=== PATIENT | male | born 1990 | race African-American/Black ===

== ENCOUNTER 2018-01-05 06:22 | Day surgery (SDC) | payer OTHER ==
--- NOTE | 2017-12-30 16:45 | HP ---
PREOPERATIVE HISTORY AND PHYSICAL: DATE OF ADMISSION: 01/05/18 [facility] PROVIDER: Dr. Monica Choi.* (DICTATED BY RACHELE HITCHCOCK) CHIEF COMPLAINT: Left fourth finger injury. HISTORY OF PRESENT ILLNESS: Addison is a 27-year-old male, who is a grad student at [employer]. He was playing basketball on 12/22/17 and was hit in the hand. He had pain, swelling, and deformity of the fourth finger and was seen at [facility]. X-rays were taken. He was placed in a splint and referred to Orthopedics for further followup. There was malrotation of the finger on exam and continues to be. The patient is interested in surgical intervention. PAST MEDICAL HISTORY: Ulcerative colitis. PAST SURGICAL HISTORY: None. CURRENT MEDICATIONS: Lialda 1.2 g daily. ALLERGIES: No known drug allergies. FAMILY HISTORY: Positive for diabetes and cancer. SOCIAL HISTORY: He lives alone. He denies tobacco use. He drinks alcoholic beverages occasionally. He exercises regularly. REVIEW OF SYSTEMS: A 14-point review of systems was discussed with the patient. All systems were negative except discussed in the HPI. PHYSICAL EXAMINATION GENERAL: He is a well-developed, well-nourished male, in no acute distress at rest. He is alert and oriented x3 with appropriate mood and affect. VITAL SIGNS: The patient is 5 feet 10 inches, 191 pounds. Blood pressure 106/ 60, pulse of 52, respirations 17, temperature 97.8. HEENT: Normocephalic, atraumatic. His hearing and vision are grossly intact. NECK: His trachea is midline. RESPIRATORY: Lungs are clear to auscultation bilaterally. No wheezes, rales, or rhonchi. CARDIOVASCULAR: Regular rate and rhythm. No murmurs, rubs, or gallops. Normal S1, S2. ABDOMEN: Soft, nondistended, nontender. Normal bowel sounds. EXTREMITIES: Exam of the left upper extremity, skin is intact without abrasions or open wounds. There is mild edema and ecchymosis of the fourth finger into the palm. He is tender to palpation along the proximal phalanx of the fourth finger with about 60 degrees of malrotation. He is nontender throughout the remainder of the fingers. He has full flexion and extension of the MCP, PIP, and DIP joints of all digits. Normal range of motion at the elbow , wrist, and shoulder. Sensation to light touch is intact. He has a normal vascular exam. DIAGNOSTIC STUDIES: X-rays of the fourth finger showed a displaced comminuted fracture at the distal aspect of the proximal phalanx of the fourth finger on the left hand with rotation. IMPRESSION: Left fourth finger fracture. PLAN: The patient is to undergo left fourth finger fracture closed reduction and percutaneous pinning by Dr. Choi on 01/05/18. The risks, benefits, and postoperative course were discussed with the patient at length and he would like to proceed. He did advise that he is not able to take ibuprofen postoperatively due to his ulcerative colitis. All of his questions were answered to his full satisfaction. He is understanding to call with problems or concerns. RACHELE HITCHCOCK [id number]/[facility] #: [id number] MTDMariusz
[~2018-01-05 06:22] MED LIST: Buffered Lidocaine 0.9% SYRIN* 5 ML/SYR SYRINGE INTRADERM ONE
[2018-01-05] MEDS ORDERED: ceFAZolin 2 GM PREMIX (*) 2 GM/50 ML BAG IVPB ONE (06:31)
[2018-01-05] MEDS ORDERED: Propofol* 10 MG/ML 20 ML BTL IV PUSH ONE (07:15)
[2018-01-05] MEDS ORDERED: Midazolam* 1 MG/ML 2 ML VIAL (2 MG) ONE (07:15)
[2018-01-05] MEDS ORDERED: fentaNYL* 50 MCG/ML 2 ML VIAL (100 MCG VIAL) ONE (07:15)
[2018-01-05] MEDS ORDERED: Lidocaine 1% INJ* 10 MG/ML 30 ML SDV ONE (07:16)
[2018-01-05] MEDS ORDERED: Naloxone* 0.4 MG/ML 1 ML VIAL IV PRN (08:13)
[2018-01-05 08:23] VITALS: BP 128/66
--- NOTE | 2018-01-06 03:15 | OP ---
DATE OF OPERATION: 01/05/18 - [facility] DATE OF : 89 SURGEON: Monica Choi MD BIOLOGY SPECIMEN TECHNICIAN: RACHELE Robles ANESTHESIA: Local MAC. PRE-OP DIAGNOSIS: Left ring finger proximal phalanx fracture, displaced. POST-OP DIAGNOSIS: Left ring finger proximal phalanx fracture, displaced plus collateral ligament tear of the PIP joint, radial side. OPERATIVE PROCEDURE: Closed reduction and pinning of the proximal phalanx fracture, left ring finger. ESTIMATED BLOOD LOSS: Zero. TOURNIQUET TIME: Tourniquet was not used during the procedure. INDICATION FOR PROCEDURE: Addison is a 27-year-old male who injured his left ring finger playing basketball. He has obvious deformity of the finger with a spiral comminuted fracture of the proximal phalanx. He presents for close reduction and pinning. DESCRIPTION OF PROCEDURE: The patient was brought to the operating room, was given a sedation anesthetic and a digital block with 10 cc of 1% plain lidocaine. The skin of his left hand and forearm was prepped and draped in the usual sterile fashion. The fracture was close reduced and there was still a slight angular deformity of the ring finger towards the small finger and it was determined that there was radial collateral ligament injury at the PIP joint as in flexion and extension of the finger, the alignment was very good. The fracture fragments were secured with four 0.035 inch K-wires, which were cut outside the skin. The pin sites were dressed with Xeroform, 4x4, Webril and the ring finger was joseph taped to the middle finger and AlumaFoam splint secured with Coban. The patient tolerated the procedure well, was brought to the recovery room in good condition. [id number]/[facility] #: [id number] [facility]
--- NOTE | 2018-01-06 10:23 | RAD ---
INDICATION: S62.615A COMPARISONS: December 22, 2017 TECHNIQUE: Fluoroscopy was provided for a surgical procedure. Total fluoroscopy time is: 1 minute, 21 seconds FINDINGS: Spot images demonstrate percutaneous fixation of the proximal phalanx of the fourth digit IMPRESSION: FLUOROSCOPY WAS PROVIDED FOR A SURGICAL PROCEDURE CPT II Codes: G9500
== END 2018-01-05 08:38 | disposition home or self-care (01) ==
LOC: OREAST 06:22
PROVIDERS: ATTEND Orthopaedic Surgery
DX: S62.615A Displaced fracture of proximal phalanx of left ring finger, initial encounter for closed fracture (principal); W21.05XA Struck by basketball, initial encounter; Y93.67 Activity, basketball; Y92.310 Basketball court as the place of occurrence of the external cause; K51.90 Ulcerative colitis, unspecified, without complications
CPT/HCPCS: 76000; C1776; J0690; J2250; J2704; J3010

== ENCOUNTER 2018-04-13 14:17 | Emergency (ER) | payer OTHER ==
[2018-04-13 15:26] VITALS: BP 145/67
--- NOTE | 2018-04-13 15:28 | UC ---
Throat Pain/Nasal Robert HPI - HPI Summary HPI Summary: 27 yo male presents with a sore throat for the last 2 days. He has not taken anything OTC for his symptoms. He is going out of town in a few days and wants to make sure he does not have strep. He denies fever, chills, cough, SOB, chest pain. - History of Current Complaint Chief Complaint: UCRespiratory Stated Complaint: THROAT COMPLAINT Time Seen by Provider: 04/13/18 15:28 Hx Obtained From: Patient Severity: Mild Pain Intensity: 2 Pain Scale Used: 0-10 Numeric - Allergies/Home Medications Allergies/Adverse Reactions: Allergies Allergy/AdvReac Type Severity Reaction Status Date / Time NSAIDS (Non-Steroidal AdvReac Intermediate Bleeding Verified 04/13/18 15:26 Anti-Inflamma PMH/Surg Hx/FS Hx/Imm Hx - Additional Past Medical History Additional PMH: Ulcerative colitis - Surgical History Surgical History: None - Family History Known Family History: Positive: None - Social History Occupation: Employed Full-time Lives: With Family Alcohol Use: Weekly Alcohol Amount: once a week on average Substance Use Type: None Smoking Status (MU): Never Smoked Tobacco Review of Systems Constitutional: Negative Skin: Negative Eyes: Negative ENT: Sore Throat Respiratory: Negative Cardiovascular: Negative Gastrointestinal: Negative Neurovascular: Negative Neurological: Negative Psychological: Negative All Other Systems Reviewed And Are Negative: Yes Physical Exam - Summary Physical Exam Summary: GENERAL: NAD. WDWN. No pain distress. SKIN: No rashes, sores, lesions, or open wounds. HEENT: Head: AT/NC Eyes: Conjunctiva clear without inflammation or discharge. Ears: Hearing grossly normal. TMs intact, no bulging, erythema, or edema. Nose: Nasal mucosa pink and moist. NTTP maxillary and frontal sinus. Throat: Posterior oropharynx mild erythema. No tonsillar enlargement. No exudates. Uvula midline. No hoarse voice or muffled voice. NECK: Supple. Nontender. No lymphadenopathy. CHEST: CTAB. No r/r/w. No accessory muscle use. Breathing comfortably and in no distress. CV: RRR. Without m/r/g. Pulses intact. Cap refill <2seconds NEURO: Alert. PSYCH: Age appropriate behavior. Triage Information Reviewed: Yes Vital Signs: Initial Vital Signs Temp 98.3 F 04/13/18 15:22 Pulse 58 04/13/18 15:22 Resp 18 04/13/18 15:22 BP 145/67 04/13/18 15:22 Pulse Ox 98 04/13/18 15:22 Laboratory Tests 04/13/18 15:32 Group A Strep Rapid Negative Vital Signs Reviewed: Yes Throat Pain/Nasal Course/Dx - Course Course Of Treatment: POC strep negative. Suspecy viral pharyngitis - Differential Dx/Diagnosis Provider Diagnoses: Viral pharyngitis Discharge - Sign-Out/Discharge Documenting (check all that apply): Patient Departure All imaging exams completed and their final reports reviewed: No Studies - Discharge Plan Condition: Stable Disposition: HOME Patient Education Materials: Pharyngitis (ED) Referrals: [facility] - Jatin STEINER [Primary Care Provider] - Additional Instructions: If you develop a fever, shortness of breath, chest pain, new or worsening symptoms - please call your PCP or go to the ED. Your blood pressure was high at todays visit. Please see your primary provider within 4 weeks for recheck and re-evaluation. - Billing Disposition and Condition Condition: STABLE Disposition: Home - Attestation Statements Provider Attestation: Per institutional requirements, I have reviewed the chart, however, I was not consulted specifically or made aware of this patient by the midlevel provider. I did not personally evaluate, interact with , or disposition this patient.
== END 2018-04-13 15:51 | disposition home or self-care (01) ==
LOC: UCEAST 14:17
DX: J02.8 Acute pharyngitis due to other specified organisms (principal)
CPT/HCPCS: 87651; 99211; G0463